=== PATIENT | male | born 1975 | race Caucasian/White ===

== ENCOUNTER → 2018-03-16 | Outpatient (CLI) | payer OTHER ==
[~2018-03-16] MED LIST: IBU800 PO; PRE20 PO
--- NOTE | 2018-03-16 09:47 | EKG ---
[place] [facility] [place]IENT NAME: YUSUF WEBSTER : [id number] MR: [id number] V: [id number] EXAM DATE: ORDERING PHYSICIAN: CHARO VELEZ TECHNOLOGIST: MICHELLE Jackson Reason : QT Blood Pressure : / mmHG Vent. Rate : 056 BPM Atrial Rate : 056 BPM P-R Int : 144 ms QRS Dur : 096 ms QT Int : 436 ms P-R-T Axes : 068 081 068 degrees QTc Int : 420 ms Sinus bradycardia Diffuse ST elevation - suspect early repolarization, but cannot exclude other causes No previous ECGs available Confirmed by NETTE HOLDER ([id number] on 03/16/2018 7:51:10 PM Referred By: Confirmed By:NETTE HOLDER
[2018-03-16 09:57] LABS: PLATELET COUNT, AUTOMATED 330 K/uL (150-450)
[2018-03-16 10:08] LABS: LDL CHOLESTEROL 63 mg/dl
== END ==
LOC: LAB 09:24
PROVIDERS: ATTEND Nurse Practitioner Family
DX: Z00.00 Encounter for general adult medical examination without abnormal findings (principal); F41.9 Anxiety disorder, unspecified; R00.2 Palpitations; Z82.49 Family history of ischemic heart disease and other diseases of the circulatory system; I21.3 ST elevation (STEMI) myocardial infarction of unspecified site
CPT/HCPCS: 36415; 82040; 82247; 82310; 82374; 82435; 82465; 82565; 82947; 83718; 84075; 84132; 84155; 84295; 84443; 84450; 84460; 84478; 84520; 85025; 93005